=== PATIENT | male | born 1940 | race African-American/Black ===

== ENCOUNTER 2017-03-23 09:30 | Day surgery (SDC) | payer MEDICARE, MEDICAID ==
[~2017-03-23] VITALS: Ht 172.7 cm; Wt 87.1 kg
[~2017-03-23 09:30] MED LIST: BALANCED SALT IRRIG SOLN COMB1 500ML OP ONE
[2017-03-23] MEDS ORDERED: PHENYLEPHRINE HCL 10% OPHTH DROPS 5ML LEFTEYE ONE (10:00)
[2017-03-23] MEDS ORDERED: CYCLOPENTOLATE HCL 1% OPHTH DROPS 2ML LEFTEYE ONE (10:00)
[2017-03-23] MEDS ORDERED: TROPICAMIDE 1% OPHTH DROPS 15ML LEFTEYE ONE (10:00)
[2017-03-23] MEDS ORDERED: HYALURONATE SODIUM 14 MG/ML 0.85ML SYRINGE IO ONE (10:04)
[2017-03-23] MEDS ORDERED: TRIAMCINOLONE ACETONIDE 40MG/ML 1ML VIAL ONE (10:04)
[2017-03-23] MEDS ORDERED: LACTATED RINGERS 1,000 ML IV SCH (10:15)
[2017-03-23] MEDS ORDERED: LORA10CA PO (11:49)
[2017-03-23] MEDS ORDERED: GEMF600T3 PO (11:49)
[2017-03-23] MEDS ORDERED: METO25TA6 PO (11:49)
[2017-03-23] MEDS ORDERED: CHRM1TAB PO (11:49)
[2017-03-23] MEDS ORDERED: ATOR20TA65 PO (11:49)
[2017-03-23] MEDS ORDERED: UBID100T7 PO (11:49)
[2017-03-23] MEDS ORDERED: [UNRECOGNIZED DRUG - CODE] PO (11:49)
[2017-03-23] MEDS ORDERED: ROSU5TAB3 PO (11:49)
[2017-03-23] MEDS ORDERED: HYDR-4133 PO (11:49)
[2017-03-23] MEDS ORDERED: OXYC30TA89 PO (11:49)
[2017-03-23] MEDS ORDERED: FENTANYL CITRATE/PF 50MCG/ML 2ML VIAL ONE (12:55)
[2017-03-23] MEDS ORDERED: MIDAZOLAM HCL 2 MG/2 ML VIAL ONE (12:55)
[2017-03-23] MEDS ORDERED: TETRACAINE 0.5% OPHTH DROPS 4ML ONE (13:01)
[2017-03-23] MEDS ORDERED: BALANCED SALT IRRIG SOLN 15ML ONE (13:01)
[2017-03-23] MEDS ORDERED: CIPROFLOXACIN 0.3% OPHTH SOLN 2.5ML ONE (13:01)
[2017-03-23] MEDS ORDERED: PREDNISOLONE ACETATE 1% OPHTH DROPS 1ML ONE (13:01)
[2017-03-23] MEDS ORDERED: LIDOCAINE HCL/PF 2% 20 MG/ML 10ML VIAL ONE (13:01)
[2017-03-23] MEDS ORDERED: NEO/POLYMYX B SULF/DEXAMETH OPHTH OINT 3.5GM ONE (13:01)
[2017-03-23] MEDS ORDERED: BUPIVACAINE HCL/PF 0.75% (7.5MG/ML) 10ML ONE (13:01)
[2017-03-23] MEDS ORDERED: LIDOCAINE HCL 1% 20ML VIAL (Pyxis) INJ ONE (13:03)
[2017-03-23] MEDS ORDERED: PROPOFOL 200MG/20ML VIAL IV ONE (13:03)
[2017-03-23] MEDS ORDERED: ONDANSETRON HCL 4MG/2ML VIAL ONE (13:10)
[2017-03-23] MEDS ORDERED: SODIUM CHLORIDE 0.9% 1,000 ML IV SCH (13:19)
[2017-03-23] MEDS ORDERED: ONDANSETRON HCL 4MG/2ML VIAL IV PRN (13:30)
[2017-03-23] MEDS ORDERED: MORPHINE SULFATE 2 MG/ML CPJ (NOT FOR IM USE) IV PRN (13:30)
== END 2017-03-23 18:30 | disposition home or self-care (01) ==
LOC: OR 09:30
PROVIDERS: ATTEND Ophthalmology
DX: H25.9 Unspecified age-related cataract (principal); I10 Essential (primary) hypertension; E78.5 Hyperlipidemia, unspecified; E11.9 Type 2 diabetes mellitus without complications
CPT/HCPCS: 66984; 82962; 93005; J2250; J2405; J3010; J3490; J7120; V2632; J2704; J3301